=== PATIENT | male | born 1960 | race American Indian/Alaskan Native ===

== ENCOUNTER 2017-05-30 18:52 | Emergency (ER) | payer OTHER, MEDICARE ==
[2017-05-30 19:00] VITALS: BP 148/80
[2017-05-31] MEDS ORDERED: MOTRIN PO ONE (02:23)
[2017-05-31] MEDS ORDERED: FLEXERIL PO ONE (02:23)
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
== END 2017-05-31 05:40 | disposition home or self-care (01) ==
LOC: ED 18:52
DX: M54.2 Cervicalgia (principal); M54.6 Pain in thoracic spine; M25.561 Pain in right knee; M25.562 Pain in left knee; F17.200 Nicotine dependence, unspecified, uncomplicated
CPT/HCPCS: 72125; 72128; 72131; 99283